=== PATIENT | female | born 1975 | race Caucasian/White ===

== ENCOUNTER 2024-07-21 08:41 | Emergency (ER) | payer OTHER ==
[2024-07-21 08:48] VITALS: BP 145/84; PULSE 79; RESP 18; TEMP 98.3; BMI 29.2
[2024-07-21] MEDS ORDERED: DEXAMETHASONE SOD PHOSPHATE 10 MG/1 ML VIAL ONE (09:48)
[2024-07-21] MEDS ORDERED: KETOROLAC TROMETHAMINE 30 MG/1 ML VIAL ONE (09:48)
[2024-07-21] MEDS: KETOROLAC TROMETHAMINE 30 MG/1 ML VIAL IM ONE (09:57)
[2024-07-21] MEDS: DEXAMETHASONE SOD PHOSPHATE 10 MG/1 ML VIAL IM ONE (09:57)
[2024-07-21 10:07] LABS: THROAT:GRP A STREP NOT DETECTED (NOTDETECTED)
== END 2024-07-21 10:51 | disposition home or self-care (01) ==
LOC: JERFT 08:41
PROC: 3E0233Z Introduction of Anti-inflammatory into Muscle, Percutaneous Approach (ICD-10-PCS; principal; 2024-07-21)
PROC: 3E023GC Introduction of Other Therapeutic Substance into Muscle, Percutaneous Approach (ICD-10-PCS; 2024-07-21)
DX: J20.8 Acute bronchitis due to other specified organisms (principal); R50.9 Fever, unspecified; Z20.822 Contact with and (suspected) exposure to COVID-19
CPT/HCPCS: 0241U-QW; 87651; 99284-25; J1100

== ENCOUNTER 2024-08-07 09:43 | Emergency (ER) | payer OTHER ==
[2024-08-07 10:01] VITALS: BP 131/75; PULSE 67; RESP 19; TEMP 98.4
[2024-08-07] MEDS ORDERED: KETOROLAC TROMETHAMINE 30 MG/1 ML VIAL ONE (10:44)
[2024-08-07] MEDS ORDERED: DEXAMETHASONE SOD PHOSPHATE 10 MG/1 ML VIAL ONE (10:45)
[2024-08-07] MEDS: DEXAMETHASONE LIQUID 0.5 MG/5 ML PO ONE (10:57)
[2024-08-07] MEDS: KETOROLAC TROMETHAMINE 30 MG/1 ML VIAL IM ONE (10:58)
[2024-08-07 11:16] LABS: THROAT:GRP A STREP NOT DETECTED (NOTDETECTED)
[2024-08-07] MEDS ORDERED: BENZOCAINE/MENTH/CETYLPYRD CL 1 EACH LOZENGE MM ONE (11:49)
[2024-08-07] MEDS: BENZOCAINE/MENTH/CETYLPYRD CL 1 EACH LOZENGE MM ONE (11:59)
== END 2024-08-07 12:00 | disposition home or self-care (01) ==
LOC: JERFT 09:43
PROC: 3E0133Z Introduction of Anti-inflammatory into Subcutaneous Tissue, Percutaneous Approach (ICD-10-PCS; principal; 2024-08-07)
DX: J02.9 Acute pharyngitis, unspecified (principal); R50.9 Fever, unspecified; R06.02 Shortness of breath; M54.2 Cervicalgia; M54.6 Pain in thoracic spine; M79.10 Myalgia, unspecified site; Z20.822 Contact with and (suspected) exposure to COVID-19
CPT/HCPCS: 0241U-QW; 87651; 96372; 99284-25